=== PATIENT | female | born 2000 | race Caucasian/White ===

== ENCOUNTER 2020-07-31 15:54 | Emergency (ER) | payer OTHER, SELFPAY ==
--- NOTE | ~2020-07-31 | XR_ITS ---
XR knee LT 3V 07/31/2020 16:19 INDICATION: Left knee pain PROCEDURE: 3 views left knee COMPARISON: No prior studies for comparison FINDINGS: Fracture, dislocation or subluxation is not identified. The soft tissues appear within norm al limits. No foreign bodies are identified. IMPRESSION: 1: NO ACUTE BONE OR JOINT ABNORMALITY IDENTIFIED. Reviewed, dictated and finalized at location B.
--- NOTE | 2020-07-31 15:57 | ED.LOWEXIN ---
HPI - Extremity Injury (Lower) General Chief Complaint: Extremity Injury, Lower Stated Complaint: INJURED L KNEE Time Seen by Provider: 07/31/20 15:57 Source: patient and RN notes reviewed History of Present Illness HPI Narrative: Patient is a 20-year-old female who presents the urgent care with complaints of left knee pain. Patient states that she fell down a concrete stair landing on the knee and believes that she twisted it. Patient states that this occurred prior to arrival and she has not taken anything for pain [id number] prior to arrival. Patient states she believes that the kneecap popped out of place and then popped back in . Patient is tearful but denies any other injuries. No other acute complaints. No acute distress noted. Patient aware of the plan of care. Some parts of this dictation were generated by voice recognition software and may contain typographical and/or grammatical inaccuracies. Related Data Allergies Allergy/AdvReac Type Severity Reaction Status Date / Time No Known Allergies Allergy Unverified 07/31/20 16:07 Review of Systems Review of Systems: Narrative: CONSTITUTIONAL: Denies fever, chills, or sweats. EYES: Denies visual changes, redness, or discharge. ENT: Denies rhinorrhea, congestion, sore throat, or otalgia. CARDIOVASCULAR: Denies chest pain, palpitations, or edema. RESPIRATORY: Denies cough or dyspnea. GASTROINTESTINAL: Denies abdominal pain, nausea, vomiting, or diarrhea. GENITOURINARY: Denies dysuria or hematuria. SKIN: Denies rash or itching. MUSCULOSKELETAL: Reports of left knee pain and swelling NEUROLOGIC: Denies headache, numbness, or weakness. All other systems reviewed are negative, except as documented in HPI. [facility] Family History Family History (Updated 02/26/18 @ 08:31 by DOCTOR UNKNOWN) Mother Family history of thyroid disease Social History Social History Smoking status: Never smoker Alcohol intake: never Comments At the time of my signature, I reviewed and agree with the nursing past medical, surgical, social, and family history. There is no relevant family history pertinent to the patient complaint. Exam Narrative: Exam Narrative: GENERAL: This is a well-nourished, well-developed patient, in no apparent distress. HEAD: normocephalic, atraumatic. EYES: PERRL. Sclera clear/white. Vision is grossly intact. EARS: External ears normal NOSE: External nose normal with no obvious nasal discharge, nares without redness, no rhinorrhea. THROAT: Mucous membranes moist NECK: Neck supple SKIN: warm, intact with no suspicious lesions or rash, good texture and turgor. NEURO: awake, alert, and oriented to person, place and time. There were no obvious focal neurologic abnormalities. EXTREMITIES: Mild edema noted to the left knee, mainly anterior. Moderate tenderness to anterior joint spaces. Inability to tolerate drawer test. Negative posterior popliteal pain. Range of motion test deferred due to pain. Exacerbated pain with weightbearing. Positive strong left pedal pulse with capillary refill less than 2 seconds Course Vital Signs Vital signs: Vital Signs Temperature 97.4 F L 07/31/20 16:06 Pulse Rate 105 H 07/31/20 16:06 Respiratory Rate 20 07/31/20 16:06 Blood Pressure 129/104 H 07/31/20 16:06 Pulse Oximetry 100 07/31/20 16:06 Temperature 97.4 F L 07/31/20 16:08 Pulse Rate 105 H 07/31/20 16:08 Respiratory Rate 20 07/31/20 16:08 Blood Pressure 129/104 H 07/31/20 16:08 Pulse Oximetry 100 07/31/20 16:08 Reviewed-patient is informed that they may have pre-hypertension or hypertension based on a blood pressure reading in the department. I recommend the patient call the primary care provider listed on their discharge instructions or a physician of their choice this week to arrange follow-up for further evaluation of possible pre-hypertension or hypertension. MDM - Extremity Injury (Lower) MDM Narrative Medical decision making
[2020-07-31 16:06] VITALS: BP 129/104; PULSE 105; RESP 20; TEMP 36.3; O2SAT 100
[2020-07-31 16:08] VITALS: BP 129/104; PULSE 105; RESP 20; TEMP 36.3; O2SAT 100
== END 2020-07-31 16:38 | disposition home or self-care (01) ==
PROVIDERS: Emergency Provider Nurse Practitioner Family; PCP Internal Medicine
DX: M25.562 Pain in left knee (principal); F98.8 Other specified behavioral and emotional disorders with onset usually occurring in childhood and adolescence
CPT/HCPCS: 73562; 99203; G0463

== ENCOUNTER → 2020-10-20 16:09 | Outpatient (CLI) | payer BC, SELFPAY ==
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
== END ==
PROVIDERS: Visit Provider Internal Medicine
DX: S83.512A Sprain of anterior cruciate ligament of left knee, initial encounter (principal); S83.232A Complex tear of medial meniscus, current injury, left knee, initial encounter; M79.89 Other specified soft tissue disorders
CPT/HCPCS: 73721

== ENCOUNTER 2020-10-29 09:21 | Outpatient (CLI) | payer BC, SELFPAY ==
[2020-10-29 10:05] LABS: Basophils Absolute Auto 0.1 K/mm3 (0.0-0.1); Basophils Percent Auto 0.7 % (0.2-1.2); Eosinophils Absolute Auto 0.2 K/mm3 (0-0.3); Eosinophils Percent Auto 2.4 % (0-4.4); Hematocrit 34.7 % (37.0-47.0); Hemoglobin 11.6 g/dL (12.0-15.0); Immature Granulocyte Absolute 0.02 K/mm3 (0.00-0.031); Immature Granulocyte Percent A 0.3 % (0-0.5); Lymphocytes Absolute Auto 2.01 K/mm3 (0.9-3.2); Lymphocytes Percent Auto 28.8 % (18.3-44.2); Mean Corpuscular HGB Conc 33.4 g/dl (32-36); Mean Corpuscular Hemoglobin 30.3 pg (26-34); Mean Corpuscular Volume 90.6 fl (80-100); Mean Platelet Volume 10.3 fl (7.4-10.4); Monocytes Absolute Auto 0.5 K/mm3 (0.1-0.6); Monocytes Percent Auto 6.5 % (2.6-8.5); Neutrophils Absolute Auto 4.3 K/mm3 (1.3-6.7); Neutrophils Percent Auto 61.3 % (45.5-73.1); Platelet Count Result 260 k/mm3 (150-375); Red Blood Count 3.83 M/mm3 (4.2-5.4); Red Cell Distribution Width 13.2 % (11.5-14.5)
[2020-10-29 10:16] LABS: Alanine Aminotransferase 17 U/L (4-35); Albumin Level 4.7 g/dL (3.5-5.1); Alkaline Phosphatase 48 U/L (38-126); Anion Gap 7 mmol/L (8-16); Aspartate Amino Transferase 32 U/L (14-36); Bilirubin,Total 0.4 mg/dL (0.2-1.3); Blood Urea Nitrogen 10 mg/dL (7-17); Calcium 9.7 mg/dL (8.4-10.2); Carbon Dioxide 30 mmol/L (22-30); Chloride 105 mmol/L (98-107); Cholesterol 188 mg/dL (0-200); Estimated Glomerular Filt Rate > 60; Glucose 89 mg/dL (65-105); HDL Direct 66 mg/dL; Potassium 4.2 mmol/L (3.4-5.0); Sodium 142 mmol/L (137-145); Triglycerides 119 mg/dL (<150)
[2020-10-29 10:26] LABS: LDL Cholesterol Direct 88 mg/dL
== END 2020-10-29 09:22 | disposition home or self-care (01) ==
LOC: ANHLAB 09:24
PROVIDERS: PCP Internal Medicine; Visit Provider Clinical Nurse Specialist
DX: Z13.228 Encounter for screening for other metabolic disorders (principal); Z13.220 Encounter for screening for lipoid disorders
CPT/HCPCS: 36415; 80053; 80061; 82607; 82746; 85025

== ENCOUNTER → 2022-03-02 10:33 | Outpatient (CLI) | payer BC, SELFPAY ==
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
== END ==
PROVIDERS: PCP Internal Medicine; Visit Provider Chiropractor
DX: M54.2 Cervicalgia (principal)
CPT/HCPCS: 72050

== ENCOUNTER 2022-06-13 14:56 | Outpatient (CLI) | payer OTHER, SELFPAY ==
[2022-06-13 15:54] LABS: Amphetamine Screen Urine Negative (Negative); Barbiturate Screen Urine Negative (Negative); Benzodiazepines Screen Urine Negative (Negative); Cannabinoid Screen Urine Negative (Negative); Cocaine Screen Urine Negative (Negative); Methadone Screen Urine Negative (Negative); Opiate Screen Urine Negative (Negative); Phencyclidine Screen Urine Negative (Negative)
== END 2022-06-13 14:57 | disposition home or self-care (01) ==
LOC: ANHLAB 14:58
PROVIDERS: PCP Internal Medicine; Visit Provider Nurse Practitioner
DX: F90.9 Attention-deficit hyperactivity disorder, unspecified type (principal)
CPT/HCPCS: 80307

== ENCOUNTER 2024-10-11 15:08 | Emergency (ER) | payer OTHER, SELFPAY ==
[2024-10-11 15:10] VITALS: BP 122/75; PULSE 77; RESP 16; TEMP 36.4; O2SAT 99
--- OUTSIDE RECORDS SUMMARY | 2024-10-11 15:10 | XMS_ITS | Clinical Summary ---
Author Organization [facility] Address [address] [place] [address] Care Team Providers Care Oracle Database Architect Name Role Phone Noman Barba DO Primary Care Provider [phone] Geovany Easton Unavailable [phone] Allergies Active Allergy Reactions Criticality Noted Date Comments Bee Pollen Unknown 10/30/2020 Medications dextroamphetami ne-amphetamine XR (ADDERALL XR) 20 mg 24 hr capsule Take by mouth daily 09/28/2020 Active venlafaxine XR (EFFEXOR-XR) 75 mg 24 hr capsule Take 75 mg by mouth every morning 10/06/2020 Active cholecalciferol (VITAMIN D-3) 2000 unit capsule Take 1 capsule (2,000 Units total) by mouth daily 30 capsule 11/02/2020 Active ondansetron (ZOFRAN) 4 mg tabletIndicatio ns:Prevention of Post-Operative Nausea and Vomiting Take 1 tablet (4 mg total) by mouth every 6 (six) hours as needed for nausea or vomiting 20 tablet 1 11/02/2020 Active gabapentin (NEURONTIN) 300 mg capsule Take 1 capsule (300 mg total) by mouth 3 (three) times a day as needed (pain) 60 capsule 11/05/2020 Active Active Problems Problem Noted Date Diagnosed Date Acute pharyngitis, unspecified 10/30/2020 Dysuria 10/30/2020 Non-recurrent acute suppurat madiha otitis media of right ear without spontaneous rupture of tympanic membrane 10/30/2020 Sore throat 10/30/2020 Strep pharyngitis 10/30/2020 Left anterior cruciate ligament tear 10/30/2020 Overview (10/30/2020): Added automatically from request for surgery [id number] Bucket-handle tear of medial meniscus of left knee as current injury 10/30/2020 Overview (10/30/2020): Added automatically from request for surgery [id number] Medical History Medical History Date Comments ADHD (attention deficit hyperactivity disorder) Depression Social History Tobacco Use Types Packs/Day Years Used Date Smoking Tobacco: Never AUDIT-C Answer Date Recorded Q1: How often do you have a drink containing alc ohol? Never 11/03/2020 Average Number of Drinks Not on file 021 Frequency of Binge Drinking Not on file 10/07 Comments No Sex and Gender Information Value Date Recorded Sex Assigned at Not on file Legal Sex Female 12:21 PM CDT Gender Identity Not on file Sexual Orientation Not on file Obstetrics History Last Filed Vital Signs Vital Sign Reading Time Taken Comments Blood Pressure 119/82 12/14/2020 9:46 AM CDT Pulse 114 12/14/2020 9:46 AM CDT Temperature 37 C (98.6 F) 11/03/2020 1:20 PM CDT Respiratory Rate 18 11/03/2020 3:06 PM CDT Oxygen Saturation 100% 11/03/2020 3:06 PM CDT Inhaled Oxygen Concentration - - Weight 60.3 kg (133 lb) 12/14/2020 9:46 AM CDT Height 170.2 cm (5' 7) 12/14/2020 9:46 AM CDT Body Mass Index 20.83 12/14/2020 9:46 AM CDT Plan of Treatment Health Maintenance Due Date Last Done Comments Cervical Cancer Screening 1999 Depression Screening 1999 Hepatitis C Screening 1999 Regular Well Visit/Exam 18-64 2017 Covid-19 Vaccine ( season) 2024 12/08/2020 DTaP/Tdap/Td Vaccine (8 - Td or Tdap) 02/25/2034 02/26/2024, 12/13/2010, 11/17/2004, Additional history exists Hepatitis B Screening Completed 02/14/2000 , 1999, 1999 Varicella Vaccines Completed 12/13/2010, 06/14/2000 HPV Vaccines Completed 01/01/2014, 12/06, 12/13/2010 Influenza Vaccine Completed 01/31/2024, 05/03/2023 Pneumococcal vaccine <65 Aged Out No longer eligible based on patient's age to complete this topic Medical Devices Implanted Type Area Bearing Press Machine Operator Device Identifier Shelf Expiration Date Model / Serial / Lot [employer] Ar-1588tb-4 Tightrope 14mm Attachable Round Concave Button Fixation - [id number] Implanted:Qty: 1 on 11/03/2020 by Mitchel Ng MD at [facility] Left: Knee [employer] 05/07/2024 AR-1588TB- 4 / / [id number] [employer] [id number] Device Fxatn Tightrope Deploying Suture - [id number] Implanted:Qty: 1 on 11/03/2020 by Mitchel Ng MD at [facility] Left: Knee [employer] 07/05/2025 AR-1588BTB -J / / [id number] Depuy Mitek [id number] Truespan Orthocord Nonabsorbable 2 Backstop Braid 24d 2-0 Sebastian - [id number] Implanted:Qty: 1 on 11/03/2020 by Mitchel Ng MD at [facility] Left: Knee Depuy Mitek 05/07/2023 [id number] / / [id number] Depuy Mitek [id number] Truespan Orthocord Non Absorbable 2 Backstop Braid Needle 12d 2-0 - [id number] Implanted:Qty: 1 on 11/03/2020 by Mitchel Ng MD at [facility] Left: Knee Depuy Mitek 05/07/2023 [id number] / / [id number] Lifenet Fgl Flexigraft Graftlink 7.5-10.5mm 60-80mm Frozen Allograft - [id number] - [id number] Implanted:Qty: 1 on 11/03/2020 by Mitchel Ng MD at [facility] Left: Knee Lifenet 08/17/2023 FGL / [id number] Description:[id number] Depuy Mitek [id number] Truespan Orthocord Nonabsorbable 2 Backstop Braid 24d 2-0 Sebastian - [id number] Implanted:Qty: 1 on 11/03/2020 by Mitchel Ng MD at [facility] Left: Knee Depuy Mitek 05/07/2023 [id number] / / [id number] Depuy Mitek [id number] Truespan Orthocord Nonabsorbable 2 Backstop Braid 24d 2-0 Sebastian - [id number] Implanted:Qty: 1 on 11/03/2020 by Mitchel Ng MD at [facility] Left: Knee Depuy Mitek 05/07/2023 [id number] / / [id number] Insurance [facility] [place] Care Teams Oracle Database Architect Relationship Specialty Start Date End Date Noman Barba DO PCP - General Internal Medicine 09/29/20 Geovany Easton PA [address] [place] [address] DR FULLER [address] [place] [id number] Physician Binder Technician Orthopedic Surgery 11/03/20
--- OUTSIDE RECORDS SUMMARY | 2024-10-11 15:10 | XMS_ITS | Referral Summary ---
Author Organization [facility] Address [address] [place] [address] Care Team Providers Care Skate Shop Attendant Name Role Phone Noman Barba DO Primary Care Provider [phone] Geovany Easton Unavailable [phone] Allergies Active Allergy Reactions Criticality Noted Date [...] (10/30/2020): Added automatically from request for surgery [id number] Bucket-handle tear of medial meniscus of left knee as current injury 10/30/2020 Overview (10/30/2020): Added automatically from request for surgery [id number] Social History Tobacco Use Types Packs/Day Years [...] on file Sexual Orientation Not on file Last Filed Vital Signs Vital Sign Reading [...] 12/14/2020 9:46 AM CDT Plan of Treatment Not on file Medical Devices Implanted Type Area Combination Worker Device Identifier Shelf Expiration Date Model / Serial / Lot [employer] Ar-1588tb-4 Tightrope 14mm Attachable Round Concave Button Fixation - [id number] Implanted:Qty: 1 on 11/03/2020 by Mitchel Ng MD at [facility] Left: Knee [employer] 05/07/2024 AR-1588TB- 4 / / [id number] Ar[employer] [id number] Device Fxatn Tightrope Deploying Suture - [id number] Implanted:Qty: 1 on 11/03/2020 by Mitchel Ng MD at [facility] Left: Knee [employer] 07/05/2025 AR-1588BTB -J / / [id number] Depuy Mitek [id number] Truespan Orthocord Nonabsorbable 2 Backstop Braid 24d 2-0 [place] - [id number] Implanted:Qty: 1 on 11/03/2020 by Mitchel Ng MD at [facility] Left: Knee Depuy Mitek 05/07/2023 [id number] / / [id number] Depuy Mitek [id number] Truespan Orthocord Non Absorbable 2 Backstop Braid Needle 12d 2-0 - [id number] Implanted:Qty: 1 on 11/03/2020 by Mitchel Ng MD at [facility] Left: Knee Depuy Mitek 05/07/2023 [id number] / / [id number] Lifenet Fgl Flexigraft Graftlink 7.5-10.5mm 60-80mm Frozen Allograft - [id number] - [id number] Implanted:Qty: 1 on 11/03/2020 by Mitchel Ng MD at [facility] Left: Knee Lifenet 08/17/2023 FGL / [id number] / Description:[id number] Depuy Mitek [id number] Truespan Orthocord Nonabsorbable 2 Backstop Braid 24d 2-0 [place] - [id number] Implanted:Qty: 1 on 11/03/2020 by Mitchel Ng MD at [facility] Left: Knee Depuy Mitek 05/07/2023 [id number] / / [id number] Depuy Mitek [id number] Truespan Orthocord Nonabsorbable 2 Backstop Braid 24d 2-0 [place] - [id number] Implanted:Qty: 1 on 11/03/2020 by Mitchel Ng MD at [facility] Left: Knee Depuy Mitek 05/07/2023 [id number] / / [id number] Insurance [employer] [place] Care Teams Skate Shop Attendant Relationship Specialty Start Date End Date Noman Barba DO PCP - General Internal Medicine 09/29/20 Geovany Easton PA [address] [place] [address] [place] [address] Physician Guard Immigration Orthopedic Surgery 11/03/20
[2024-10-11 17:22] VITALS: BP 117/64; PULSE 68; RESP 16; TEMP 36.4; O2SAT 100
--- NOTE | 2024-10-11 18:01 | ED.HA ---
HPI - Headache General Chief Complaint: Headache Stated Complaint: headache Time Seen by Provider: 10/11/24 17:33 History of Present Illness HPI Narrative: 24 y/o F presents with her mother for headache that started at 7:00 a.m. this morning. Patient states the headache is in the front of her head associated with nausea and photophobia. She took Tylenol ibuprofen earlier today with little improvement. She denies head injury or trauma, vision changes, focal numbness or weakness, fever, nuchal rigidity, congestion, otalgia, sore throat. Denies possibility of . Related Data Home Medications ?Medication ?Instructions ?Recorded ?Confirmed ?Last Taken ?Type etonogestrel 68 mg subdermal 1 implant subdermal ONCE 04/05/22 05/03/23 Unknown History implant (Nexplanon) Allergies Allergy/AdvReac Type Severity Reaction Status Date / Time No Known Allergies Allergy Verified 10/11/24 17:29 Review of Systems Review of Systems: All systems reviewed & are unremarkable except as noted in HPI and below PMFSH Past Medical History Medical History Adult ADHD Chronic neck pain Axillary hyperhidrosis Surgical History Surgical History History of repair of anterior cruciate ligament of left knee History of tonsillectomy Family History Family History Mother Family history of thyroid disease Social History Social History Smoking status: Never smoker Alcohol intake: never Lack of Transportation: No Lack of Food: Never True Current Housing: I Have Housing Concerned About Future Housing: No Difficulty Paying Gas/Electric Bills: No Difficulty Paying for Meds: No Currently Unemployed: YES Education: Bachelor's Degree Difficulty w/ Childcare or Family Care: No Exam Narrative: GENERAL: Well-appearing, well-nourished, and in no acute distress. HEAD: Normocephalic, atraumatic. EYES: PERRLA and EOMI. ENT: Nares clear, no rhinorrhea or epistaxis. Mucous membranes moist. Bilateral TMs are chiang nonbulging with normal canals. Posterior pharynx erythema or edema, no tonsillar hypertrophy or exudates. NECK: Supple. No nuchal rigidity CHEST: Clear to auscultation. No respiratory distress. HEART: Regular rate and rhythm. No murmur heard. Normal peripheral pulses. ABDOMEN: Soft, nontender, nondistended, normal active bowel sounds. EXTREMITIES: Normal range of motion. No edema. SKIN: Warm, dry, no rash. NEURO: No focal deficits. Alert and oriented x4. Cranial nerves 2-12 intact. Strength 5/5 throughout. Sensation intact throughout. Normal [id number]. No pronator drift. Course Vital Signs Vital signs: Vital Signs Temperature 97.6 F 10/11/24 15:10 Pulse Rate 77 10/11/24 15:10 Respiratory Rate 16 10/11/24 15:10 Blood Pressure 122/75 10/11/24 15:10 Pulse Oximetry 99 10/11/24 15:10 Temperature 97.5 F L 10/11/24 17:22 Pulse Rate 68 10/11/24 17:22 Respiratory Rate 16 10/11/24 17:22 Blood Pressure 117/64 10/11/24 17:22 Pulse Oximetry 100 10/11/24 17:22 MDM - Headache MDM Narrative Medical decision making narrative: 24-year-old female presents to the emergency department for headache that started at 7:00 a.m. this morning. Denies injury or trauma. Vitals are stable. Patient is afebrile and nontoxic appearing. No meningeal signs. She is neurologically intact without lateralizing deficits. Overall, presentation is consistent with a migraine. Will provide IV fluids and headache cocktail and re-evaluate. Patient re-evaluated and feels much improved. She is ready to be discharged home. She is ambulatory with a steady gait. Encouraged Tylenol ibuprofen for home, close follow-up with PCP and discussed strict ED return precautions. She and her mother are agreeable with the plan verbalized understanding. Discharged in stable condition. Discharge Plan Discharge Clinical Impression: Headache Qualifiers: Headache type: unspecified Headache chronicity pattern: acute headache Intractability: not intractable Qualified Code(s): R51.9 - Headache, unspecified Patient Disposition: Home Condition: Stable Instructions: Antibiotic Form, Acute Headache (ED) Additional Instructions: You were evaluated in the emergency department for headache. Your exam is reassuring. You were given IV fluids and a headache cocktail with improvement. Please follow-up closely with your primary care provider. He can take 800 mg of ibuprofen every 6 hours as needed for pain and 1000 mg of Tylenol every 6 hours as needed for pain. Return to the emergency department if you develop fever, vision changes, focal numbness or weakness, seizure-like activity, altered mental status, or other concerning symptoms. Patient Language: Welsh Prescriptions: New ibuprofen 800 mg tablet 800 mg PO TID PRN (Reason: pain) Qty: 20 0RF ondansetron 4 mg tablet,disintegrating 4 mg PO Q8H Qty: 14 0RF No Action Nexplanon 68 mg implant 1 implant subdermal ONCE Rx Instructions: as a single dose venlafaxine 75 mg capsule,extended release 24hr 75 mg PO DAILY Qty: 90 1RF dextroamphetamine-amphetamine [Adderall XR] 20 mg capsule,extended release 24hr 20 mg PO DAILY Qty: 30 0RF Follow-up/Referrals: Noman Barba, [Primary Care Provider] -
--- OUTSIDE RECORDS SUMMARY | 2024-10-11 18:02 | XMS_ITS | Continuity of Care Document ---
Author Organization [employer] [place] Address [address] [place] [address] Phone Care Team Providers Care Sewer Pipe Sorter Name Role Phone Geni PT, BG, Josue Unavailable Unavailable Procedures Procedure Date Therapeutic Activities Neuromuscular Re-Ed Therapeutic Exercise Manual Therapy Therapeutic Activities Neuromuscular Re-Ed Therapeutic Exercise Manual Therapy Therapeutic Activities Neuromuscular Re-Ed Therapeutic Exercise Manual Therapy Therapeutic Activities Neuromuscular Re-Ed Therapeutic Exercise Manual Therapy Therapeutic Activities Neuromuscular Re-Ed Therapeutic Exercise Manual Therapy Therapeutic Activities Neuromuscular Re-Ed Therapeutic Exercise Manual Therapy Therapeutic Activities Neuromuscular Re-Ed Therapeutic Exercise Manual Therapy Electrical Stimulation Therapeutic Activities Neuromuscular Re-Ed Therapeutic Exercise Manual Therapy Electrical Stimulation Therapeutic Activities Neuromuscular Re-Ed Therapeutic Exercise Manual Therapy Therapeutic Activities Neuromuscular Re-Ed Therapeutic Exercise Manual Therapy Therapeutic Activities Neuromuscular Re-Ed Therapeutic Exercise Manual Therapy Therapeutic Activities Neuromuscular Re-Ed Therapeutic Exercise Manual Therapy Therapeutic Activities Neuromuscular Re-Ed Therapeutic Exercise Manual Therapy Electrical Stimulation Therapeutic Activities Neuromuscular Re-Ed Therapeutic Exercise Manual Therapy Therapeutic Activities Neuromuscular Re-Ed Manual Therapy Therapeutic Exercise Electrical Stimulation PT Evaluation Moderate Complexity Therapeutic Activities Neuromuscular Re-Ed Hot or Cold Pack PT Re-evaluation Neuromuscular Re-Ed Therapeutic Activities Therapeutic Exercise Progress Note Therapeutic Activities Neuromuscular Re-Ed Therapeutic Exercise Therapeutic Exercise Therapeutic Activities Neuromuscular Re-Ed Therapeutic Activities Neuromuscular Re-Ed Manual Therapy Therapeutic Exercise Manual Therapy Electrical Stimulation Therapeutic Exercise Therapeutic Activities Manual Therapy Therapeutic Activities Therapeutic Exercise Manual Therapy Therapeutic Exercise Therapeutic Activities Electrical Stimulation Manual Therapy Electrical Stimulation Therapeutic Activities Therapeutic Exercise Therapeutic Exercise Manual Therapy Electrical Stimulation Therapeutic Activities Therapeutic Exercise Therapeutic Activities Electrical Stimulation Manual Therapy Therapeutic Activities Electrical Stimulation Manual Therapy Progress Note Therapeutic Exercise Manual Therapy Therapeutic Exercise Therapeutic Activities Electrical Stimulation Therapeutic Activities Manual Therapy Therapeutic Exercise Electrical Stimulation Therapeutic Activities Electrical Stimulation Therapeutic Exercise Manual Therapy Therapeutic Exercise Manual Therapy Therapeutic Activities Electrical Stimulation Therapeutic Activities PT Evaluation Moderate Complexity Therapeutic Exercise Advance Directives Directive Yes / No Effective Date File Name No Information Encounters Encounter Description Practice Location Reason(s) For Visit Diagnoses Date Provider Providers Copied on Encounter [facility], [place], [place], [id number], tel:[phone] [place] No Information 2 Geni Salas. . Referring Provider: Noman Barba, [address] [place] [address] [address], [place], [address]. tel:[phone] [facility] [address], [place], [place], [id number], tel:[phone] [place] No Information 2 Geni Salas. . Referring Provider: Noman Barba, [address] [place] [address] [address], [place], [address]. tel:[phone] [facility] [address], [place], [place], [address], [place] tel:[phone] [place] No Information 2 Geni Salas. . Referring Provider: Noman Barba, [address] [place] [address] [address], [place], [address]. tel:[phone] [facility], [address], [place], [place], [address], [place] tel:[phone] [place] No Information 2 Geni Salas. . Referring Provider: Noman Barba, [address] [place] [address] [address], [place], [address]. tel:[phone] [facility], [address], [place], [place], [address], [place] tel:[phone] [place] No Information 2 Jim Mancera. . Referring Provider: Noman Barba, [address] [place] [address] [address], [place], [address]. tel:[phone] [facility], [address], [place], [place], [address], [place] tel:[phone] [place] No Information 2 Geni Salas. . Referring Provider: Noman Barba, [address] [place] [address] [address], [place], [address]. tel:[phone] [facility], [place], [place], [address], [place] tel:[phone] [place] No Information 2 Wilbert Varner , [place], [place]. Referring Provider: Noman Barba, [address] [place] [address] [address], [place], [address]. tel:[phone] [facility], [address], [place], [place], [address], [place] tel:[phone] [place] No Information 2 Wilbert Varner , [place], [place]. Referring Provider: Noman Barba, [address] [place] [address] [address], [place], [address]. tel:[phone] [facility], [address], [place], [place], [address], [place] tel:[phone] [place] No Information Mar-0 2 Atkins Long. , [place], [place]. Referring Provider: Noman Barba, [address] [place] [address] [address], [place], [address]. tel:[phone] [facility], [address], [place], [place], [address], [place] tel:[phone] [place] No Information 0 2 Atkins Long. , [place], [place]. Referring Provider: Noman Barba, [address] [place] [address] [address], [place], [address]. tel:[phone] [place] [address] [address], [place], [place], [address], [place] tel:[phone] [place] No Information 0 2 Atkins Long. , [place], [place]. Referring Provider: Noman Barba, [address] [place] [address] [address], [place], [address]. tel:[phone] [facility], [address], [place], [place], [address], [place] tel:[phone] [place] No Information 0 2 Wilbert Long. , [place], [place]. Referring Provider: Noman Barba, [address] [place] [address] [address], [place], [address]. tel:[phone] [facility], [address], [place], [place], [address], [place] tel:[phone] [place] No Information 2 Atkins Long. , [place], [place]. Referring Provider: Noman Barba, [address] [place] [address] [address], [place], [address]. tel:[phone] [facility], [place], [place], [address], [place] tel:[phone] [place] No Information 2 Wilbert Varner , [place], [place]. Referring Provider: Noman Barba, [address] [place] [address] [address], [place], [address]. tel:[phone] [facility], [place], [place], [address], [place] tel:[phone] [place] No Information 2 Wilbert Alves. , [place], [place]. Referring Provider: Noman Barba, [address] [place] [address] [address], [place], [address]. tel:[phone] [facility], [place], [place], [address], [place] tel:[phone] [place] No Information 2 Wilbert Varner , [place], [place]. Referring Provider: Noman Barba, [address] [place] [address] [address], [place], [address]. tel:[phone] [facility], [place], [place], [address], [place] tel:[phone] [place] No Information 1 Lisa Mock. . [facility], [place], [place], [address], [place] tel:[phone] [place] No Information 0 1 Wilbert Alves. , [place], [place]. [facility], [place], [place], [address], [place] tel:[phone] [place] No Information 0 1 Garrels Bisi. . [facility], [place], [place], [address], [place] tel:[phone] [place] No Information 0 1 Garrels Bisi. . [facility], [place], [place], [address], [place] tel:[phone] [place] No Information 1 Garrels Bisi. . [facility], [place], [place], [address], [place] tel:[phone] [place] No Information 1 Makler Luke. . [facility], [place], [place], [address], [place] tel:[phone] [place] No Information 1 Garrels Bisi. . [facility], [place], [address], [place] tel:[phone] [place] No Information 1 Garrels Bisi. . [facility], [place], [place], [address], [place] tel:[phone] [place] No Information 1 Garrels Bisi. . [facility], [place], [place], [address], [place] tel:[phone] [place] No Information 1 Coltenler Luke. . [facility], [place], [place], [address], [place] tel:[phone] [place] No Information 1 Garrels Bisi. . [facility], [place], [place], [address], [place] tel:[phone] [place] No Information 1 Garrels Bisi. . [facility], [place], [place], [address], [place] tel:[phone] [place] No Information 1 Garrels Bisi. . [facility], [place], [place], [address], tel:[phone] [place] No Information 1 Vimalheatherashely Bisi. . [employer] [facility] [address], [place], [place], [address], tel:[phone] [place] No Information 1 Coltencyrus Ramandeepserafin. . [employer] [facility] [address], [place], [place], [address], tel:[phone] [place] No Information 1 aDny Eliasa. . Family History Family Member Type Diagnosis Age At Onset No Information Payers Payer name Insurance type Covered alliance party ID Yony fall(s) [facility] [id number] [employer] AM [id number] [place] 00 Social History Type Description Quantity Date Captured Comments Sex Female Smoking Status No Information Chief Complaint And Reason For Visit No Information Reason For Referral Reason For Referral No Information History Of Present Illness Encounter Date Complaint History Of Prese nt Illness No Information Functional Status Date Functional Assessmen t No Information Instructions Date Instruction Additional Infor mation No Information Assessments Type Assessment Date No Information Patient Care Teams Name Effective Dates (start - stop) Status Members No Information
--- OUTSIDE RECORDS SUMMARY | 2024-10-11 18:02 | XMS_ITS | Clinical Summary ---
Author Organization [facility] Address [address] [place] [address] Care Team Providers Care Healthcare Risk Control Consultant Name Role Phone Noman Barba DO Primary Care Provider [phone] Geovany Easton Unavailable [phone] Allergies Active Allergy Reactions Criticality Noted Date [...] (10/30/2020): Added automatically from request for surgery [id number] Bucket-handle tear of medial meniscus of left knee as current injury 10/30/2020 Overview (10/30/2020): Added automatically from request for surgery [id number] Medical History Medical History Date Comments ADHD [...] this topic Medical Devices Implanted Type Area Application Support Consultant Device Identifier Shelf Expiration Date Model / Serial / Lot [employer] Ar-1588tb-4 Tightrope 14mm Attachable Round Concave Button Fixation - [id number] Implanted:Qty: 1 on 11/03/2020 by Mitchel Ng MD at [facility] Left: Knee [employer] 05/07/2024 AR-1588TB- 4 / / [id number] [employer] [id number] Device Fxatn Tightrope Deploying Suture - [id number] Implanted:Qty: 1 on 11/03/2020 by Mitchel Ng MD at [facility] Left: Knee [employer] 07/05/2025 AR-1588BTB -J / / [id number] Depuy Mitek [id number] Truespan Orthocord Nonabsorbable 2 Backstop Braid 24d 2-0 [place] - [id number] Implanted:Qty: 1 on 11/03/2020 by Mitchel Ng MD at [facility] Left: Knee [employer] 05/07/2023 [id number] / / [id number] [employer] [id number] Truespan Orthocord Non Absorbable 2 Backstop Braid Needle 12d 2-0 - [id number] Implanted:Qty: 1 on 11/03/2020 by Mitchel Ng MD at [facility] Left: Knee [employer] 05/07/2023 [id number] / / [id number] Lifenet Fgl Flexigraft Graftlink 7.5-10.5mm 60-80mm Frozen Allograft - [id number] - [id number] Implanted:Qty: 1 on 11/03/2020 by Mitchel Ng MD at [facility] Left: Knee [employer] 08/17/2023 FGL / [id number] Description:[id number] Depuy [employer]k 132553 Truespan Orthocord Nonabsorbable 2 Backstop Braid 24d 2-0 [place] - [id number] Implanted:Qty: 1 on 11/03/2020 by Mitchel Ng MD at [facility] Left: Knee [employer] 05/07/2023 [id number] / / [id number] [employer] 655521 Truespan Orthocord Nonabsorbable 2 Backstop Braid 24d 2-0 [place] - [id number] Implanted:Qty: 1 on 11/03/2020 by Mitchel Ng MD at [facility] Left: Knee [employer] 05/07/2023 [id number] / / [id number] Insurance [facility] [place] Care Teams Healthcare Risk Control Consultant Relationship Specialty Start Date End Date Noman Barba DO PCP - General Internal Medicine 09/29/20 Geovany Easton PA [address] [place] [address] DR F[address] [place] [address] Physician Heavy Antiarmor Weapons Infantryman Orthopedic Surgery 11/03/20
--- OUTSIDE RECORDS SUMMARY | 2024-10-11 18:02 | XMS_ITS | Referral Summary ---
Author Organization [facility] Address [address] [place] [address] Care Team Providers Care Ccie Name Role Phone Noman Barba DO Primary Care Provider [phone] Geovany Easton Unavailable [phone] Allergies Active Allergy Reactions Criticality Noted Date [...] (10/30/2020): Added automatically from request for surgery [id number] Bucket-handle tear of medial meniscus of left knee as current injury 10/30/2020 Overview (10/30/2020): Added automatically from request for surgery [id number] Social History Tobacco Use Types Packs/Day Years [...] on file Medical Devices Implanted Type Area Respiratory Therapy Technician Device Identifier Shelf Expiration Date Model / Serial / Lot [employer] Ar-1588tb-4 Tightrope 14mm Attachable Round Concave Button Fixation - [id number] Implanted:Qty: 1 on 11/03/2020 by Mitchel Ng MD at [facility] Left: Knee [employer] 05/07/2024 AR-1588TB- 4 / / [id number] [employer] [id number] Device Fxatn Tightrope Deploying Suture - [id number] Implanted:Qty: 1 on 11/03/2020 by Mitchel Ng MD at [facility] Left: Knee [employer] 07/05/2025 AR-1588BTB -J / / [id number] Depuy [employer] 954671 Truespan Orthocord Nonabsorbable 2 Backstop Braid 24d 2-0 [place] - [id number] Implanted:Qty: 1 on 11/03/2020 by Mitchel Ng MD at [facility] Left: Knee [employer] 05/07/2023 [id number] / / [id number] [employer] 756323 Truespan Orthocord Non Absorbable 2 Backstop Braid Needle 12d 2-0 - [id number] Implanted:Qty: 1 on 11/03/2020 by Mitchel Ng MD at [facility] Left: Knee [employer] 05/07/2023 [id number] / / [id number] Lifenet Fgl Flexigraft Graftlink 7.5-10.5mm 60-80mm Frozen Allograft - [id number] - [id number] Implanted:Qty: 1 on 11/03/2020 by Mitchel Ng MD at [facility] Left: Knee [employer] 08/17/2023 FGL / [id number] / Description:[id number] Depuy [employer] [id number] Truespan Orthocord Nonabsorbable 2 Backstop Braid 24d 2-0 [place] - [id number] Implanted:Qty: 1 on 11/03/2020 by Mitchel Ng MD at [facility] Left: Knee [employer] 05/07/2023 [id number] / / [id number] [employer] 259182 Truespan Orthocord Nonabsorbable 2 Backstop Braid 24d 2-0 [place] - [id number] Implanted:Qty: 1 on 11/03/2020 by Mitchel Ng MD at [facility] Left: Knee [employer] 05/07/2023 [id number] / / [id number] Insurance [employer] [place] Care Teams Ccie Relationship Specialty Start Date End Date Noman Barba DO PCP - General Internal Medicine 09/29/20 Geovany Easton PA [address] [place] [address] [place] [address] Physician Record Label Intern Orthopedic Surgery 11/03/20
[2024-10-11] MEDS: SODIUM CHLORIDE 0.9% IV 1,000 ML 999 ML IV CONT (18:18)
[2024-10-11] MEDS: KETOROLAC 15 MG/ML VIAL (*BKC) IV PUSH (18:19)
[2024-10-11] MEDS: PROCHLORPERAZINE EDISYLATE 10 MG/2 ML VIAL IV PUSH (18:19)
[2024-10-11] MEDS: ACETAMINOPHEN 500 MG TABLET 1000 MG PO (18:19)
[2024-10-11] MEDS: diphenhydrAMINE HCl INJ 50 MG/ML VIAL 25 MG IV PUSH (18:19)
== END 2024-10-11 19:34 | disposition home or self-care (01) ==
PROVIDERS: Emergency Provider Physician Assistant; PCP Internal Medicine
DX: R51.9 Headache, unspecified (principal); F90.9 Attention-deficit hyperactivity disorder, unspecified type; Z79.899 Other long term (current) drug therapy
CPT/HCPCS: 96361; 96374; 96375; 99284; A9270; J0780; J1200; J1885; J7030